=== PATIENT | female | born 1975 | race African-American/Black ===

== ENCOUNTER 2017-01-13 13:55 | Emergency (ER) | payer OTHER ==
[~2017-01-13] VITALS: Ht 170.2 cm; Wt 80.3 kg
[2017-01-13 16:11] VITALS: BP 116/81
== END 2017-01-13 16:10 | disposition home or self-care (01) ==
LOC: ED 13:55
DX: R07.89 Other chest pain (principal); J45.909 Unspecified asthma, uncomplicated; G43.909 Migraine, unspecified, not intractable, without status migrainosus; Z79.899 Other long term (current) drug therapy; Z88.1 Allergy status to other antibiotic agents
CPT/HCPCS: J1885